=== PATIENT | male | born 1965 | race African-American/Black ===

== ENCOUNTER 2018-09-14 08:01 | Day surgery (SDC) | payer OTHER ==
[~2018-09-14 08:01] MED LIST: NACL 0.9% 1000 ML 1,000 ML IV SCH
--- NOTE | 2018-09-14 10:24 | Anesthesia Consultation ---
Anesthesia Consult and Med Hx Date of service: 09/14/18 - Airway Anesthetic Teeth Evaluation: Poor ROM Head & Neck: Adequate Mental/Hyoid Distance: Adequate Mallampati Class: Class III Intubation Access Assessment: Possibly Difficult - Pulmonary Exam CTA: Yes - Cardiac Exam Cardiac Exam: RRR - Pre-Operative Health Status ASA Pre-Surgery Classification: ASA2 Proposed Anesthetic Plan: MAC - Pulmonary Hx Smoking: No Hx Respiratory Symptoms: No - Cardiovascular System Hx Hypertension: No Hx Heart Attack/AMI: No - Central Nervous System CVA: No - Endocrine Hx Renal Disease: No Hx Liver Disease: No Hx Insulin Dependent Diabetes: Yes Hx Thyroid Disease: No - Other Systems Hx Obesity: No
--- NOTE | 2018-09-14 10:25 | Anesthesia Day of Surgery ---
Anesthesia Day of Surgery - Day of Surgery Patient Examined: Yes Patient H&P Reviewed: Yes Patient is NPO: Yes
[2018-09-14] MEDS ORDERED: D50W (25GM) Syringe IV ONE (10:29)
[2018-09-14] MEDS ORDERED: WATER FOR IRRIG STERILE IR ONE (10:59)
--- NOTE | 2018-09-14 11:30 | Short Stay Summary ---
Short Stay Documentation Date of service: 09/14/18 Narrative H&P: The patient presents for his first screening colonoscopy. Average risk profile. - History Past Medical History: diabetes Past Surgical History: No surgical history Social history: no significant social history, no smoking, no alcohol abuse - Allergies and Medications Current Medications: Allergies No Known Allergies Allergy (Verified 09/13/18 11:06) Home Medications Medication Instructions Recorded Confirmed Last Taken Type Basaglar Kwikpen U-100 15 units SUB-Q DAILY 09/14/18 09/14/18 09/14/18 History Basaglar Kwikpen U-100 15 units SUB-Q HS 09/14/18 09/14/18 Unknown History Active Medications Sodium Chloride (Nacl 0.9% 1000 Ml) 1,000 mls @ 50 mls/hr IV DIRECT FARAZ Last Admin: 09/14/18 10:30 Dose: 50 mls/hr Documented by: - Physical exam General appearance: no acute distress, mild distress, severe distress, well- nourished Integumentary: no rash, no growths, no abnormal pigmentation HEENT: Atraumatic, PERRLA, EOMI, Mucous membr. moist/pink Lungs: Clear to auscultation, Normal air movement Breasts: deferred Heart: Regular rate, Normal S1, Normal S2, No murmurs Gastrointestinal: normoactive bowel sounds, no tenderness, no distended, no masses, no guarding, no organomegaly, no obese Male Genitourinary: deferred Rectal Exam: normal exam-external/orifice Extremities: no ischemia, pulses intact, pulses symmetrical, No edema, normal temperature, normal color, Full ROM Neurological: Normal gait, Normal speech, Strength at 5/5 X4 ext, Normal tone, Sensation intact, Cranial nerves 3-12 NL - Brief post op/procedure progress note Date of procedure: 09/14/18 Estimated blood loss: none Pathology: none Condition: stable - Disposition Condition at discharge: Good Disposition: DC-01 TO HOME OR SELFCARE - Discharge Diagnoses (1) Colon cancer screening Status: Acute Short Stay Discharge Plan Activity: other (no driving for 24 hours.) Weight Bearing Status: Full Weight Bearing Diet: regular Follow up with: SILVIA CABRERA DO [Primary Care Provider] - 7 Days
--- NOTE | 2018-09-14 11:33 | Operative Report ---
Operative Report Operative Report: Date of procedure: 09/14/2018 Preprocedure diagnosis:: Cancer screening, no prior studies. Average risk. Post procedure diagnosis: Mild diverticulosis of the left colon. Procedure: Colonoscopy to the cecum Endoscopist: Dr. Ardon Anesthesia: Monitored anesthesia care per anesthesia department Estimated blood loss: 0 Medications: Monitored anesthesia care. See separate report by anesthesia for details. After careful discussion of the nature and purpose of the procedure as well as details of the technique risks benefits and alternatives the patient gave consent. Please see recent history and physical from the office. The patient was placed in the left lateral decubitus position and medicated per anesthesia. A rectal exam was performed sphincter tone was normal there were no masses palpable. The [employer] 570 scope was passed transanally and advanced under continuous direct vision without difficulty to the cecum. The colon was well prepared. The cecum was normal. The ascending colon was normal and on forward and retroflexed views. The transverse colon was normal. There were scattered diverticula in the descending colon and sigmoid colon.. The rectum was normal on forward and retroflexed views. The procedure was well-tolerated overall and the patient was observed in recovery. Conclusions: Mild left colon diverticulosis. Plan: [Repeat colonoscopy in 10 years, sooner if clinically indicated.] Signed electronically: Luis Manuel Ardon M.D.
[2018-09-14] MEDS ORDERED: DIPRIVAN 10 MG/ML IV ONE (11:34)
[2018-09-14 12:13] VITALS: BP 111/63
[2018-09-14] MEDS ORDERED: XYLOCAINE MPF 2% ONE (14:24)
[2018-09-14] MEDS ORDERED: NEO SYNEPHRINE ONE (14:24)
== END 2018-09-14 08:02 | disposition home or self-care (01) ==
LOC: GIO 08:01
PROVIDERS: ATTEND Internal Medicine Gastroenterology
DX: Z12.11 Encounter for screening for malignant neoplasm of colon (principal); K57.30 Diverticulosis of large intestine without perforation or abscess without bleeding; E11.9 Type 2 diabetes mellitus without complications; Z79.899 Other long term (current) drug therapy; Z87.891 Personal history of nicotine dependence
CPT/HCPCS: 45378; 82962; J2370; J2704; J7030